=== PATIENT | female | born 1995 | race Caucasian/White ===

== ENCOUNTER 2020-01-17 09:56 | Inpatient (IN) | payer MEDICAID, OTHER ==
[~2020-01-17] VITALS: Ht 162.6 cm; Wt 45.5 kg
[~2020-01-17 09:56] MED LIST: FERR-89 PO; PREN-64 PO
[2020-01-17 12:02] LABS: BASOPHILS % (AUTO) 0.2 % (0.0-2.0); EOSINOPHILS % (AUTO) 0 % (1.0-6.0); HEMATOCRIT 43.1 % (36-46); HEMOGLOBIN 14.8 g/dL (12.0-16.0); LYMPHOCYTES # (AUTO) 1.3 K/uL (1.0-4.8); LYMPHOCYTES % (AUTO) 7.4 % (22.0-44.0); MEAN CORPUSCULAR HEMOGLOBIN 32.8 pg (26.0-34.0); MEAN CORPUSCULAR HGB CONC 34.3 G/dL (31.0-37.0); MEAN CORPUSCULAR VOLUME 96 fL (80-100); MONOCYTES # (AUTO) 0.6 K/uL (0.1-1.0); MONOCYTES % (AUTO) 3.4 % (2.0-9.0); NEUTROPHILS # (AUTO) 15.6 K/uL (1.8-7.7); PLATELET COUNT (AUTO) 188 K/uL (150-450)
[2020-01-17 12:15] LABS: ANION GAP 19 mmol/L (8-16); CALCIUM, TOTAL 9.3 mg/dL (8.8-10.5); CARBON DIOXIDE 21 mmol/L (22-29); CHLORIDE 100 mmol/L (98-107); CREATININE 0.91 mg/dL (0.60-1.30); GLOMERULAR FILTR. RATE CALC > 60 mL/min (>60); GLUCOSE,RANDOM 92 mg/dL (70-110); POTASSIUM 3.2 mmol/L (3.5-5.1); SODIUM SERUM 140 mmol/L (136-145); UREA NITROGEN, BLOOD 10 mg/dL (7-18)
[2020-01-17 12:29] LABS: ALANINE AMINOTRANSFERASE 26 U/L (12-78); ALBUMIN 5.2 g/dL (3.4-5.0); ALKALINE PHOSPHATASE 51 U/L (46-116); ASPARTATE AMINOTRANSFERASE 42 U/L (15-37); BILIRUBIN,TOTAL 1.1 mg/dL (0.1-1.0); HCG,QUANTITATIVE < 1 mIU/mL (0-6); TOTAL PROTEIN, SERUM 8.5 g/dL (6.4-8.2)
[2020-01-17] MEDS: POTASSIUM CHLORIDE 20 MEQ ER TABLET PO ONE ×2 (12:43→12:50)
[2020-01-17] MEDS ORDERED: LORazepam 1 MG TABLET PO ONE (14:30)
[2020-01-17 15:53] LABS: AMPHET/METH SCREEN,URINE NEGATIVE (NEGATIVE); BARBITURATE SCREEN, URINE NEGATIVE (NEGATIVE); BENZODIAZEPINES SCREEN,URINE NEGATIVE (NEGATIVE); CANNABINOID SCREEN,URINE POSITIVE (NEGATIVE); COCAINE SCREEN,URINE NEGATIVE (NEGATIVE); METHADONE SCREEN, URINE NEGATIVE (NEGATIVE); OPIATE SCREEN,URINE NEGATIVE (NEGATIVE)
[2020-01-17 15:56] LABS: PHENCYCLIDINE SCREEN,URINE NEGATIVE (NEGATIVE)
[2020-01-17] MEDS ORDERED: DiphenhydrAMINE HCL 50 MG/ML VIAL IM ONE (16:15)
[2020-01-17] MEDS ORDERED: LORazepam 2 MG/ML VIAL IM ONE (16:15)
[2020-01-17] MEDS ORDERED: HALOPERIDOL LACTATE 5 MG/ML VIAL IM ONE (16:15)
[2020-01-17 16:33] LABS: APPEARANCE,URINE CLEAR (CLEAR); BILIRUBIN,URINE NEGATIVE (NEGATIVE); GLUCOSE, URINE (UA) NEGATIVE (NEGATIVE); KETONES,URINE >=80 mg/dL (NEGATIVE); LEUKOCYTE ESTERASE ,URINE NEGATIVE (NEGATIVE); NITRATE,URINE NEGATIVE (NEGATIVE); OCCULT BLOOD,URINE MODERATE (NEGATIVE); PH,URINE 5.5 (5.0-8.0); PROTEIN,URINE NEGATIVE (NEGATIVE); UROBILINOGEN,URINE 0.2 mg/dL (<=1.0)
[2020-01-17 16:44] LABS: BACTERIA,URINE None Seen /HPF (None Seen); RBC,URINE 0-2 /HPF (0-2); WBC,URINE 0-2 /HPF (0-5); YEAST,URINE Rare /HPF (None Seen)
[2020-01-17 16:45] LABS: SQUAMOUS EPITHELIAL CELL,UR Few /LPF (None Seen)
[2020-01-17] MEDS ORDERED: LORazepam 2 MG TABLET PO PRN (18:15)
[2020-01-17] MEDS ORDERED: HALOPERIDOL 5 MG TABLET PO PRN (18:15)
[2020-01-17] MEDS ORDERED: ZOLPIDEM TARTRATE 10 MG TABLET PO PRN (18:15)
[2020-01-18 01:13] VITALS: BP 113/54
[2020-01-18 08:20] VITALS: BP 106/67
[2020-01-18] MEDS ORDERED: GuaiFENesin/D-METHORPHAN [SUGAR-FREE] 200-20MG/10 ML SYRUP UDCUP PO PRN (09:15)
[2020-01-18] MEDS ORDERED: MAG HYDROX/AL HYDROX/SIMETH ES 30 ML SUSPENSION UDCUP PO PRN (09:15)
[2020-01-18] MEDS ORDERED: IBUPROFEN 400 MG TABLET PO PRN (09:15)
[2020-01-18] MEDS ORDERED: ONDANSETRON HCL 4 MG TABLET PO PRN (09:15)
[2020-01-18] MEDS ORDERED: PETROLATUM,WHITE 28 GM JELLY TP PRN (09:15)
[2020-01-18] MEDS ORDERED: ALBUTEROL SULFATE HFA 90 MCG/PUFF 8 GM INHALER IH PRN (09:15)
[2020-01-18] MEDS ORDERED: CloNIDine HCL 0.1 MG TABLET PO PRN (09:15)
[2020-01-18] MEDS ORDERED: MAGNESIUM HYDROXIDE SUSPENSION 30 ML UDCUP PO PRN (09:15)
[2020-01-18] MEDS ORDERED: NICOTINE 14 MG/24 HOUR PATCH TD PRN (09:15)
[2020-01-18] MEDS ORDERED: LOPERAMIDE HCL 2 MG CAPSULE PO PRN (09:15)
[2020-01-18] MEDS ORDERED: ACETAMINOPHEN 325 MG TABLET PO PRN (09:15)
[2020-01-18] MEDS ORDERED: DOCUSATE SODIUM 100 MG CAPSULE PO PRN (09:15)
[2020-01-18 16:10] VITALS: BP 114/56
[2020-01-18] MEDS: RisperiDONE 1 MG TABLET PO SCH (16:11)
[2020-01-19 01:44] VITALS: BP 114/73
[2020-01-19] MEDS: RisperiDONE 1 MG TABLET PO SCH ×2 (08:22→16:32)
[2020-01-19 09:29] LABS: MAGNESIUM 1.9 mg/dL (1.80-2.40); PHOSPHORUS 3.6 mg/dL (2.5-4.9)
[2020-01-19 10:24] VITALS: BP 117/83
[2020-01-19 17:01] VITALS: BP 108/68
[2020-01-20 06:05] VITALS: BP 117/87
[2020-01-20 07:10] LABS: BASOPHILS % (AUTO) 0.4 % (0.0-2.0); EOSINOPHILS % (AUTO) 0.5 % (1.0-6.0); HEMATOCRIT 41.8 % (36-46); HEMOGLOBIN 14.3 g/dL (12.0-16.0); LYMPHOCYTES # (AUTO) 3.2 K/uL (1.0-4.8); LYMPHOCYTES % (AUTO) 42.7 % (22.0-44.0); MEAN CORPUSCULAR HEMOGLOBIN 32.4 pg (26.0-34.0); MEAN CORPUSCULAR HGB CONC 34.3 G/dL (31.0-37.0); MEAN CORPUSCULAR VOLUME 95 fL (80-100); MONOCYTES # (AUTO) 0.5 K/uL (0.1-1.0); MONOCYTES % (AUTO) 7.1 % (2.0-9.0); NEUTROPHILS # (AUTO) 3.7 K/uL (1.8-7.7); NEUTROPHILS % (AUTO) 49.3 % (40.0-70.0); PLATELET COUNT (AUTO) 155 K/uL (150-450); RED BLOOD CELL COUNT(AUTO) 4.43 MIL/uL (4.00-5.20); RED CELL DISTRIBUTION WIDTH 13.1 % (11.5-14.5)
[2020-01-20 08:10] LABS: PLATELET MORPHOLOGY COMMENT LARGE PLTS PRESENT
[2020-01-20] MEDS: RisperiDONE 1 MG TABLET PO SCH (08:24)
[2020-01-20 09:46] VITALS: BP 110/84
[2020-01-20] MEDS ORDERED: RISP1TAB89 PO (12:02)
== END 2020-01-20 13:20 | disposition home or self-care (01) | DRG 750 ==
LOC: EMS 09:58 → B2S 19:30
PROVIDERS: ADMIT Psychiatry & Neurology Psychiatry; ATTEND Psychiatry & Neurology Psychiatry
DX: F20.0 Paranoid schizophrenia (principal); R74.0 Nonspecific elevation of levels of transaminase and lactic acid dehydrogenase [LDH]; D72.829 Elevated white blood cell count, unspecified; F12.10 Cannabis abuse, uncomplicated; F31.9 Bipolar disorder, unspecified; F41.9 Anxiety disorder, unspecified; R63.0 Anorexia; E87.6 Hypokalemia; F10.10 Alcohol abuse, uncomplicated; Z79.899 Other long term (current) drug therapy
CPT/HCPCS: 51701; 83735; 84100; G0480; J1200; J1630; J2060

== ENCOUNTER 2021-02-07 14:28 | Emergency (ER) | payer MEDICAID, OTHER ==
[~2021-02-07] VITALS: Ht 162.6 cm; Wt 50.0 kg
[~2021-02-07 14:28] MED LIST changes: -FERR-89 PO; -PREN-64 PO; +RISP1TAB89 PO
[2021-02-07 16:41] LABS: BASOPHILS % (AUTO) 0.3 % (0.0-2.0); EOSINOPHILS % (AUTO) 0.1 % (1.0-6.0); HEMATOCRIT 41.2 % (36-46); HEMOGLOBIN 13.9 g/dL (12.0-16.0); LYMPHOCYTES # (AUTO) 1.8 K/uL (1.0-4.8); LYMPHOCYTES % (AUTO) 24.9 % (22.0-44.0); MEAN CORPUSCULAR HEMOGLOBIN 30.8 pg (26.0-34.0); MEAN CORPUSCULAR HGB CONC 33.8 G/dL (31.0-37.0); MEAN CORPUSCULAR VOLUME 91 fL (80-100); MONOCYTES # (AUTO) 0.5 K/uL (0.1-1.0); MONOCYTES % (AUTO) 7.4 % (2.0-9.0); NEUTROPHILS % (AUTO) 67.3 % (40.0-70.0); PLATELET COUNT (AUTO) 187 K/uL (150-450); RED BLOOD CELL COUNT(AUTO) 4.52 MIL/uL (4.00-5.20); RED CELL DISTRIBUTION WIDTH 12.6 % (11.5-14.5)
[2021-02-07 16:50] LABS: CALCIUM, TOTAL 9.2 mg/dL (8.8-10.5); CARBON DIOXIDE 26 mmol/L (22-29); CREATININE 0.66 mg/dL (0.60-1.30); GLOMERULAR FILTR. RATE CALC > 60 mL/min (>60); GLUCOSE,RANDOM 95 mg/dL (70-110); UREA NITROGEN, BLOOD 7 mg/dL (7-18)
[2021-02-07 17:01] LABS: ALANINE AMINOTRANSFERASE 15 U/L (12-78); ALBUMIN 4.1 g/dL (3.4-5.0); ALKALINE PHOSPHATASE 50 U/L (46-116); ASPARTATE AMINOTRANSFERASE 14 U/L (15-37); BILIRUBIN,TOTAL 0.4 mg/dL (0.1-1.0); HCG,QUANTITATIVE < 1 mIU/mL (0-6); POTASSIUM 3.6 mmol/L (3.5-5.1); SODIUM SERUM 139 mmol/L (136-145); TOTAL PROTEIN, SERUM 7.7 g/dL (6.4-8.2)
[2021-02-07 17:02] LABS: ANION GAP 10 mmol/L (8-16); CHLORIDE 103 mmol/L (98-107)
[2021-02-07 17:26] LABS: APPEARANCE,URINE CLEAR (CLEAR); BILIRUBIN,URINE NEGATIVE (NEGATIVE); GLUCOSE, URINE (UA) NEGATIVE (NEGATIVE); KETONES,URINE >=80 mg/dL (NEGATIVE); LEUKOCYTE ESTERASE ,URINE NEGATIVE (NEGATIVE); NITRATE,URINE NEGATIVE (NEGATIVE); OCCULT BLOOD,URINE LARGE (NEGATIVE); PROTEIN,URINE NEGATIVE (NEGATIVE); UROBILINOGEN,URINE 0.2 mg/dL (<=1.0)
[2021-02-07 17:30] LABS: WBC,URINE 0-2 /HPF (0-5)
[2021-02-07 17:31] LABS: BACTERIA,URINE None Seen /HPF (None Seen); SQUAMOUS EPITHELIAL CELL,UR Few /LPF (None Seen)
[2021-02-07 17:32] LABS: AMPHET/METH SCREEN,URINE NEGATIVE (NEGATIVE); BARBITURATE SCREEN, URINE NEGATIVE (NEGATIVE); BENZODIAZEPINES SCREEN,URINE NEGATIVE (NEGATIVE); CANNABINOID SCREEN,URINE NEGATIVE (NEGATIVE); COCAINE SCREEN,URINE NEGATIVE (NEGATIVE); METHADONE SCREEN, URINE NEGATIVE (NEGATIVE); OPIATE SCREEN,URINE NEGATIVE (NEGATIVE)
[2021-02-07 17:33] LABS: PHENCYCLIDINE SCREEN,URINE NEGATIVE (NEGATIVE)
[2021-02-07] MEDS ORDERED: RisperiDONE 1 MG TABLET PO ONE (19:00)
[2021-02-07 21:07] VITALS: BP 124/76
== END 2021-02-07 21:10 | disposition home or self-care (01) ==
LOC: EMS 14:31
DX: R44.0 Auditory hallucinations (principal)
CPT/HCPCS: 36415; 80053; 80307; 81001; 84702; 85025; 99284; G0480

== ENCOUNTER 2021-02-09 08:01 | Inpatient (IN) | payer MEDICAID, OTHER ==
[~2021-02-09] VITALS: Ht 154.9 cm; Wt 46.6 kg
[2021-02-09] MEDS ORDERED: RisperiDONE 1 MG TABLET PO ONE (08:30)
[2021-02-09 08:42] LABS: BASOPHILS % (AUTO) 0.4 % (0.0-2.0); EOSINOPHILS % (AUTO) 0.1 % (1.0-6.0); HEMATOCRIT 42.1 % (36-46); HEMOGLOBIN 14.1 g/dL (12.0-16.0); LYMPHOCYTES # (AUTO) 1.5 K/uL (1.0-4.8); MEAN CORPUSCULAR HEMOGLOBIN 30.5 pg (26.0-34.0); MEAN CORPUSCULAR HGB CONC 33.5 G/dL (31.0-37.0); MEAN CORPUSCULAR VOLUME 91 fL (80-100); MONOCYTES # (AUTO) 0.6 K/uL (0.1-1.0); MONOCYTES % (AUTO) 7.4 % (2.0-9.0); NEUTROPHILS # (AUTO) 5.5 K/uL (1.8-7.7); NEUTROPHILS % (AUTO) 72.1 % (40.0-70.0); PLATELET COUNT (AUTO) 174 K/uL (150-450); RED BLOOD CELL COUNT(AUTO) 4.61 MIL/uL (4.00-5.20); RED CELL DISTRIBUTION WIDTH 12.6 % (11.5-14.5)
[2021-02-09 08:52] LABS: ANION GAP 10 mmol/L (8-16); CARBON DIOXIDE 27 mmol/L (22-29); CHLORIDE 105 mmol/L (98-107); CREATININE 0.72 mg/dL (0.60-1.30); GLOMERULAR FILTR. RATE CALC > 60 mL/min (>60); GLUCOSE,RANDOM 108 mg/dL (70-110); POTASSIUM 3.6 mmol/L (3.5-5.1); SODIUM SERUM 142 mmol/L (136-145); UREA NITROGEN, BLOOD 7 mg/dL (7-18)
[2021-02-09] MEDS ORDERED: TUBERCULIN, PURIFIED PROTEIN DERIVATIVE 5 TU/0.1 ML SYRINGE ID ONE (09:15)
[2021-02-09] MEDS ORDERED: ZOLPIDEM TARTRATE 10 MG TABLET PO PRN (09:15)
[2021-02-09] MEDS ORDERED: LOPERAMIDE HCL 2 MG CAPSULE PO PRN (09:15)
[2021-02-09] MEDS ORDERED: HydrOXYzine PAMOATE 50 MG CAPSULE PO PRN (09:15)
[2021-02-09] MEDS ORDERED: PROMETHAZINE HCL 25 MG TABLET PO PRN (09:15)
[2021-02-09] MEDS ORDERED: MAGNESIUM HYDROXIDE SUSPENSION 30 ML UDCUP PO PRN (09:15)
[2021-02-09] MEDS ORDERED: LORazepam 2 MG TABLET PO PRN (09:15)
[2021-02-09] MEDS ORDERED: GuaiFENesin/D-METHORPHAN [SUGAR-FREE] 200-20MG/10 ML SYRUP UDCUP PO PRN (09:15)
[2021-02-09] MEDS ORDERED: OLANZapine 5 MG RAPDIS TABLET PO PRN (09:15)
[2021-02-09] MEDS ORDERED: MAG HYDROX/AL HYDROX/SIMETH ES 30 ML SUSPENSION UDCUP PO PRN (09:15)
[2021-02-09] MEDS ORDERED: ACETAMINOPHEN 325 MG TABLET PO PRN (09:15)
[2021-02-09 09:18] LABS: ALANINE AMINOTRANSFERASE 18 U/L (12-78); ALBUMIN 4.2 g/dL (3.4-5.0); ALKALINE PHOSPHATASE 49 U/L (46-116); ASPARTATE AMINOTRANSFERASE 14 U/L (15-37); BILIRUBIN,TOTAL 0.4 mg/dL (0.1-1.0); CHOL/HDL RATIO 2.5 (3.9-5.7); CHOLESTEROL 199 mg/dL (131-200); CREATINE KINASE, TOTAL ONLY 186 U/L (26-192); FREE T4 (FREE THYROXINE) 1.75 ng/dL (0.76-1.46); HCG,QUANTITATIVE < 1 mIU/mL (0-6); HDL CHOLESTEROL 79 mg/dL (40-60); LDL CHOL (CALC.) 109 mg/dL (0-130); TOTAL PROTEIN, SERUM 7.8 g/dL (6.4-8.2); TRIGLYCERIDES 55 mg/dL (15-150)
[2021-02-09 09:22] LABS: COVID AG,FIA SOURCE NASOPHARYNGEAL
[2021-02-09] MEDS ORDERED: HALOPERIDOL LACTATE 5 MG/ML VIAL IM ONE (15:00)
[2021-02-09] MEDS ORDERED: LORazepam 2 MG/ML VIAL IM ONE (15:00)
[2021-02-09] MEDS ORDERED: DiphenhydrAMINE HCL 50 MG/ML VIAL IM ONE (15:00)
[2021-02-09 17:49] VITALS: BP 105/74
[2021-02-09] MEDS: THIAMINE 100 MG TABLET PO SCH (17:54)
[2021-02-09] MEDS ORDERED: OLANZapine 5 MG RAPDIS TABLET PO SCH (21:00)
[2021-02-09] MEDS: MELATONIN 5 MG TABLET PO SCH (21:00)
[2021-02-10 08:35] LABS: HEMOGLOBIN A1C 4.8 % (3.8-5.6)
[2021-02-10 08:48] VITALS: BP 128/84
[2021-02-10 08:49] LABS: CHOL/HDL RATIO 2.6 (3.9-5.7); FREE T4 (FREE THYROXINE) 1.84 ng/dL (0.76-1.46); THYROID STIMULATING HORMONE 0.68 uIU/mL (0.36-3.74)
[2021-02-10] MEDS: OMEGA-3/DHA/EPA/FISH OIL 1,000 MG CAPSULE PO SCH (11:58)
[2021-02-10] MEDS: MELATONIN 5 MG TABLET PO SCH (11:58)
[2021-02-10] MEDS: FOLIC ACID 1 MG TABLET PO SCH (11:58)
[2021-02-10] MEDS: NALTREXONE HCL 50 MG TABLET PO SCH (11:58)
[2021-02-10] MEDS: MULTIVITAMINS WITH MINERALS, THERAPEUTIC TABLET PO SCH (12:00)
[2021-02-10] MEDS: THIAMINE 100 MG TABLET PO SCH ×2 (12:00→16:07)
[2021-02-10 16:38] VITALS: BP 128/85
[2021-02-10] MEDS ORDERED: LURASIDONE HCL 20 MG TABLET PO PRN ×2 (18:45)
[2021-02-10] MEDS ORDERED: LURASIDONE HCL 40 MG TABLET PO ONE ×2 (18:45)
[2021-02-11 08:22] VITALS: BP 132/83
[2021-02-11] MEDS: NALTREXONE HCL 50 MG TABLET PO SCH (09:39)
[2021-02-11] MEDS: OMEGA-3/DHA/EPA/FISH OIL 1,000 MG CAPSULE PO SCH (09:40)
[2021-02-11] MEDS: FOLIC ACID 1 MG TABLET PO SCH (09:40)
[2021-02-11] MEDS: MULTIVITAMINS WITH MINERALS, THERAPEUTIC TABLET PO SCH (09:40)
[2021-02-11] MEDS: THIAMINE 100 MG TABLET PO SCH ×2 (09:40→16:19)
[2021-02-11 13:48] LABS: APPEARANCE,URINE CLEAR (CLEAR); BILIRUBIN,URINE NEGATIVE (NEGATIVE); GLUCOSE, URINE (UA) NEGATIVE (NEGATIVE); KETONES,URINE NEGATIVE (NEGATIVE); LEUKOCYTE ESTERASE ,URINE NEGATIVE (NEGATIVE); NITRATE,URINE NEGATIVE (NEGATIVE); OCCULT BLOOD,URINE LARGE (NEGATIVE); PROTEIN,URINE NEGATIVE (NEGATIVE); UROBILINOGEN,URINE 0.2 mg/dL (<=1.0)
[2021-02-11 13:54] LABS: AMPHET/METH SCREEN,URINE NEGATIVE (NEGATIVE); BARBITURATE SCREEN, URINE NEGATIVE (NEGATIVE); BENZODIAZEPINES SCREEN,URINE NEGATIVE (NEGATIVE); CANNABINOID SCREEN,URINE NEGATIVE (NEGATIVE); COCAINE SCREEN,URINE NEGATIVE (NEGATIVE); METHADONE SCREEN, URINE NEGATIVE (NEGATIVE); OPIATE SCREEN,URINE NEGATIVE (NEGATIVE)
[2021-02-11 14:10] LABS: BACTERIA,URINE Few /HPF (None Seen); SQUAMOUS EPITHELIAL CELL,UR Few /LPF (None Seen); WBC,URINE None Seen /HPF (0-5)
[2021-02-11 14:12] LABS: PHENCYCLIDINE SCREEN,URINE NEGATIVE (NEGATIVE)
[2021-02-11 16:05] VITALS: BP 132/84
[2021-02-11] MEDS ORDERED: LURASIDONE HCL 40 MG TABLET PO SCH ×2 (17:30)
[2021-02-11] MEDS ORDERED: LURA60TA PO (18:52)
[2021-02-11] MEDS ORDERED: NALT50TA PO (18:52)
[2021-02-11] MEDS ORDERED: MELA5TAB3 PO (18:52)
[2021-02-11] MEDS ORDERED: OMEG-135 PO (18:52)
[2021-02-11] MEDS: MELATONIN 5 MG TABLET PO SCH (20:23)
[2021-02-12] MEDS: OMEGA-3/DHA/EPA/FISH OIL 1,000 MG CAPSULE PO SCH (08:42)
[2021-02-12] MEDS: NALTREXONE HCL 50 MG TABLET PO SCH (08:42)
[2021-02-12] MEDS: THIAMINE 100 MG TABLET PO SCH ×2 (08:42→16:06)
[2021-02-12] MEDS: FOLIC ACID 1 MG TABLET PO SCH (08:42)
[2021-02-12] MEDS: MULTIVITAMINS WITH MINERALS, THERAPEUTIC TABLET PO SCH (08:42)
[2021-02-12 09:38] VITALS: BP 128/88
[2021-02-12 09:41] VITALS: BP 112/81
[2021-02-12 16:00] VITALS: BP 108/75
[2021-02-12] MEDS ORDERED: LURASIDONE HCL 60 MG TABLET PO SCH (17:30)
== END 2021-02-12 16:15 | disposition home or self-care (01) | DRG 750 ==
LOC: EMS 08:19 → 3EC 16:40
PROVIDERS: ADMIT Psychiatry & Neurology Psychiatry; ATTEND Psychiatry & Neurology Psychiatry
DX: F20.0 Paranoid schizophrenia (principal); Z78.1 Physical restraint status; Z55.9 Problems related to education and literacy, unspecified; Z59.9 Problem related to housing and economic circumstances, unspecified; Z65.3 Problems related to other legal circumstances; Z81.8 Family history of other mental and behavioral disorders; Z20.822 Contact with and (suspected) exposure to COVID-19
CPT/HCPCS: 80053; 80061; 81001; 82550; 83036; 84439; 84443; 84702; 85025; 86592; 99285; A9575; G0480; J1200; J1630; J2060

== ENCOUNTER 2022-12-07 14:19 | Emergency (ER) | payer MEDICAID, OTHER ==
[~2022-12-07] VITALS: Ht 162.6 cm; Wt 58.2 kg
[~2022-12-07 14:19] MED LIST changes: +LURA60TA PO; +MELA5TAB40 PO; +NALT50TA PO; +OMEG-135 PO; -RISP1TAB89 PO
[2022-12-07 15:45] LABS: BASOPHILS % (AUTO) 0.6 % (0.0-2.0); EOSINOPHILS % (AUTO) 1.7 % (1.0-6.0); HEMATOCRIT 42.8 % (36-46); HEMOGLOBIN 14.7 g/dL (12.0-16.0); LYMPHOCYTES # (AUTO) 2.8 K/uL (1.0-4.8); LYMPHOCYTES % (AUTO) 30.4 % (22.0-44.0); MEAN CORPUSCULAR HEMOGLOBIN 31.7 pg (26.0-34.0); MEAN CORPUSCULAR HGB CONC 34.3 G/dL (31.0-37.0); MEAN CORPUSCULAR VOLUME 93 fL (80-100); MONOCYTES # (AUTO) 0.6 K/uL (0.1-1.0); MONOCYTES % (AUTO) 6.3 % (2.0-9.0); NEUTROPHILS # (AUTO) 5.7 K/uL (1.8-7.7); PLATELET COUNT (AUTO) 227 K/uL (150-450); RED BLOOD CELL COUNT(AUTO) 4.63 MIL/uL (4.00-5.20); RED CELL DISTRIBUTION WIDTH 12.4 % (11.5-14.5)
[2022-12-07 15:55] LABS: ANION GAP 7 mmol/L (8-16); CARBON DIOXIDE 27 mmol/L (22-29); CHLORIDE 103 mmol/L (98-107); GLOMERULAR FILTR. RATE CALC > 60 mL/min (>60); GLUCOSE,RANDOM 94 mg/dL (70-110); POTASSIUM 4.6 mmol/L (3.5-5.1); SODIUM SERUM 137 mmol/L (136-145); UREA NITROGEN, BLOOD 16 mg/dL (7-18)
[2022-12-07 16:08] LABS: ALANINE AMINOTRANSFERASE 22 U/L (12-78); ALBUMIN 4.3 g/dL (3.4-5.0); ALKALINE PHOSPHATASE 78 U/L (46-116); ASPARTATE AMINOTRANSFERASE 17 U/L (15-37); BILIRUBIN,TOTAL 0.2 mg/dL (0.1-1.0); HCG,QUANTITATIVE < 1 mIU/mL (0-6); PHOSPHORUS 2.8 mg/dL (2.5-4.9); TOTAL PROTEIN, SERUM 8.1 g/dL (6.4-8.2)
[2022-12-07 19:43] VITALS: BP 116/78
[2022-12-07 19:47] LABS: AMPHET/METH SCREEN,URINE NEGATIVE (NEGATIVE); BARBITURATE SCREEN, URINE NEGATIVE (NEGATIVE); BENZODIAZEPINES SCREEN,URINE NEGATIVE (NEGATIVE); CANNABINOID SCREEN,URINE NEGATIVE (NEGATIVE); COCAINE SCREEN,URINE NEGATIVE (NEGATIVE); METHADONE SCREEN, URINE NEGATIVE (NEGATIVE); OPIATE SCREEN,URINE NEGATIVE (NEGATIVE); PHENCYCLIDINE SCREEN,URINE NEGATIVE (NEGATIVE)
== END 2022-12-07 23:00 | disposition left against medical advice (07) ==
LOC: EMS 14:28
DX: R20.0 Anesthesia of skin (principal); Z53.21 Procedure and treatment not carried out due to patient leaving prior to being seen by health care provider
CPT/HCPCS: 99281; 80053; 83735; 84100; 84702; 85025; 36415; 80307 ×2; G0480

== ENCOUNTER 2024-01-28 22:06 | Emergency (ER) | payer OTHER, MEDICAID ==
[~2024-01-28] VITALS: Ht 162.6 cm; Wt 65.5 kg
[~2024-01-28 22:06] MED LIST changes: -MELA5TAB40 PO; -NALT50TA PO
[2024-01-28 22:17] VITALS: TEMP 97.7
[2024-01-28 22:46] LABS: COVID AG,FIA SOURCE NASAL SWAB
[2024-01-28 22:53] LABS: BASOPHILS % (AUTO) 0.4 % (0.0-2.0); EOSINOPHILS % (AUTO) 2.1 % (1.0-6.0); HEMATOCRIT 40.1 % (36-46); HEMOGLOBIN 13.2 g/dL (12.0-16.0); LYMPHOCYTES # (AUTO) 3.4 K/uL (1.0-4.8); LYMPHOCYTES % (AUTO) 39.1 % (22.0-44.0); MEAN CORPUSCULAR HGB CONC 32.8 G/dL (31.0-37.0); MEAN CORPUSCULAR VOLUME 91 fL (80-100); MONOCYTES # (AUTO) 0.6 K/uL (0.1-1.0); MONOCYTES % (AUTO) 6.5 % (2.0-9.0); NEUTROPHILS # (AUTO) 4.5 K/uL (1.8-7.7); NEUTROPHILS % (AUTO) 51.9 % (40.0-70.0); PLATELET COUNT (AUTO) 262 K/uL (150-450); RED BLOOD CELL COUNT(AUTO) 4.39 MIL/uL (4.00-5.20); RED CELL DISTRIBUTION WIDTH 13.7 % (11.5-14.5); WHITE BLOOD COUNT (AUTO) 8.7 K/uL (4.5-11.0)
[2024-01-28 22:56] LABS: ALCOHOL, URINE DRUG SCREEN NEGATIVE (NEGATIVE); AMPHET/METH SCREEN,URINE NEGATIVE (NEGATIVE); BARBITURATE SCREEN, URINE NEGATIVE (NEGATIVE); BENZODIAZEPINES SCREEN,URINE NEGATIVE (NEGATIVE); CANNABINOID SCREEN,URINE NEGATIVE (NEGATIVE); COCAINE SCREEN,URINE NEGATIVE (NEGATIVE); METHADONE SCREEN, URINE NEGATIVE (NEGATIVE); OPIATE SCREEN,URINE NEGATIVE (NEGATIVE); PHENCYCLIDINE SCREEN,URINE NEGATIVE (NEGATIVE)
[2024-01-28 23:00] LABS: ANION GAP 7 mmol/L (8-16); CALCIUM, TOTAL 9.6 mg/dL (8.8-10.5); CARBON DIOXIDE 29 mmol/L (22-29); CHLORIDE 102 mmol/L (98-107); GLOMERULAR FILTR. RATE CALC > 60 mL/min (>60); GLUCOSE,RANDOM 90 mg/dL (70-110); SODIUM SERUM 138 mmol/L (136-145); UREA NITROGEN, BLOOD 12 mg/dL (7-18)
[2024-01-28 23:05] LABS: SARS-COV2 (COVID) ANTIGEN,FIA Negative (Negative)
[2024-01-28 23:09] LABS: ALCOHOL, BLOOD (SERUM) < 3 mg/dL (0-10)
[2024-01-28] MEDS: LURASIDONE HCL 20 MG TABLET PO ONE (23:13)
[2024-01-28] MEDS: BENZTROPINE MESYLATE 2 MG TABLET PO ONE (23:13)
[2024-01-28] MEDS ORDERED: BENZ-247 PO (23:22)
[2024-01-28] MEDS ORDERED: LURA20TA PO (23:22)
[2024-01-28 23:24] VITALS: BP 138/76; PULSE 84; RESP 16
[2024-01-29] MEDS ORDERED: BENZ-247 PO (17:07)
== END 2024-01-28 23:48 | disposition home or self-care (01) ==
LOC: EMS 22:06
DX: F20.0 Paranoid schizophrenia (principal); Z20.822 Contact with and (suspected) exposure to COVID-19
CPT/HCPCS: 99283; 87426; 80048; 84703; 85025; 36415; 80307; G0480; Q9967

== ENCOUNTER 2024-01-29 17:00 | Inpatient (IN) | payer MEDICAID, OTHER ==
[~2024-01-29] VITALS: Ht 162.6 cm; Wt 66.0 kg
[~2024-01-29 17:00] MED LIST changes: +BENZ-247 PO; +LURA20TA PO
[2024-01-29] MEDS ORDERED: BENZ-247 PO (17:07)
[2024-01-29] MEDS: LORazepam 2 MG TABLET PO ONE (17:28)
[2024-01-29] MEDS: OLANZapine 5 MG TABLET PO ONE (17:28)
[2024-01-29] MEDS ORDERED: ZOLPIDEM TARTRATE 10 MG TABLET PO PRN (17:30)
[2024-01-29 17:57] LABS: COVID AG,FIA SOURCE NASAL SWAB
[2024-01-29 18:15] LABS: SARS-COV2 (COVID) ANTIGEN,FIA Negative (Negative)
[2024-01-29 18:45] LABS: APPEARANCE,URINE CLEAR (CLEAR); BILIRUBIN,URINE NEGATIVE (NEGATIVE); COLOR,URINE LIGHT YELLOW (YELLOW); GLUCOSE, URINE (UA) NEGATIVE (NEGATIVE); KETONES,URINE 40-60 mg/dL (NEGATIVE); LEUKOCYTE ESTERASE ,URINE NEGATIVE (NEGATIVE); NITRATE,URINE NEGATIVE (NEGATIVE); OCCULT BLOOD,URINE LARGE (NEGATIVE); PROTEIN,URINE NEGATIVE (NEGATIVE); UROBILINOGEN,URINE <=1.0 mg/dL (<=1.0)
[2024-01-29 18:45] LABS: BASOPHILS % (AUTO) 0.4 % (0.0-2.0); EOSINOPHILS % (AUTO) 0.2 % (1.0-6.0); HEMOGLOBIN 13.8 g/dL (12.0-16.0); LYMPHOCYTES # (AUTO) 1.9 K/uL (1.0-4.8); LYMPHOCYTES % (AUTO) 17.8 % (22.0-44.0); MEAN CORPUSCULAR HEMOGLOBIN 30.9 pg (26.0-34.0); MEAN CORPUSCULAR HGB CONC 34.4 G/dL (31.0-37.0); MEAN CORPUSCULAR VOLUME 90 fL (80-100); MONOCYTES # (AUTO) 0.4 K/uL (0.1-1.0); MONOCYTES % (AUTO) 4.1 % (2.0-9.0); NEUTROPHILS # (AUTO) 8.3 K/uL (1.8-7.7); NEUTROPHILS % (AUTO) 77.5 % (40.0-70.0); PLATELET COUNT (AUTO) 271 K/uL (150-450); RED BLOOD CELL COUNT(AUTO) 4.46 MIL/uL (4.00-5.20); RED CELL DISTRIBUTION WIDTH 13.5 % (11.5-14.5); WHITE BLOOD COUNT (AUTO) 10.8 K/uL (4.5-11.0)
[2024-01-29 18:50] LABS: BACTERIA,URINE Rare /HPF (None Seen); SQUAMOUS EPITHELIAL CELL,UR Moderate /LPF (None Seen); WBC,URINE 0-2 /HPF (0-5)
[2024-01-29 18:51] LABS: ALCOHOL, URINE DRUG SCREEN NEGATIVE (NEGATIVE); AMPHET/METH SCREEN,URINE NEGATIVE (NEGATIVE); BARBITURATE SCREEN, URINE NEGATIVE (NEGATIVE); BENZODIAZEPINES SCREEN,URINE NEGATIVE (NEGATIVE); CANNABINOID SCREEN,URINE NEGATIVE (NEGATIVE); COCAINE SCREEN,URINE NEGATIVE (NEGATIVE); METHADONE SCREEN, URINE NEGATIVE (NEGATIVE); OPIATE SCREEN,URINE NEGATIVE (NEGATIVE); PHENCYCLIDINE SCREEN,URINE NEGATIVE (NEGATIVE)
[2024-01-29 18:53] LABS: ANION GAP 11 mmol/L (8-16); CALCIUM, TOTAL 9.5 mg/dL (8.8-10.5); CARBON DIOXIDE 26 mmol/L (22-29); CHLORIDE 102 mmol/L (98-107); CREATININE 0.54 mg/dL (0.60-1.30); GLOMERULAR FILTR. RATE CALC > 60 mL/min (>60); GLUCOSE,RANDOM 96 mg/dL (70-110); POTASSIUM 3.7 mmol/L (3.5-5.1); SODIUM SERUM 139 mmol/L (136-145); UREA NITROGEN, BLOOD 9 mg/dL (7-18)
[2024-01-29 18:58] LABS: ALANINE AMINOTRANSFERASE 34 U/L (12-78); ALBUMIN 4.3 g/dL (3.4-5.0); ALKALINE PHOSPHATASE 97 U/L (46-116); ASPARTATE AMINOTRANSFERASE 21 U/L (15-37); BILIRUBIN,TOTAL 0.5 mg/dL (0.1-1.0); TOTAL PROTEIN, SERUM 8.2 g/dL (6.4-8.2)
[2024-01-29 19:01] LABS: ALCOHOL, BLOOD (SERUM) < 3 mg/dL (0-10)
[2024-01-29 23:09] VITALS: BP 137/87; PULSE 88; RESP 20; TEMP 97.8; O2SAT 100
[2024-01-30] MEDS ORDERED: DOCUSATE SODIUM 100 MG CAPSULE PO PRN (06:30)
[2024-01-30] MEDS ORDERED: ACETAMINOPHEN 325 MG TABLET PO PRN (06:30)
[2024-01-30] MEDS ORDERED: IBUPROFEN 400 MG TABLET PO PRN (06:30)
[2024-01-30] MEDS ORDERED: LOPERAMIDE HCL 2 MG CAPSULE PO PRN (06:30)
[2024-01-30] MEDS ORDERED: PETROLATUM,WHITE 28 GM JELLY TP PRN (06:30)
[2024-01-30] MEDS ORDERED: MAG HYDROX/ALUMINUM HYD/SIMETH ES 30 ML SUSPENSION UDCUP PO PRN (06:30)
[2024-01-30] MEDS ORDERED: ONDANSETRON HCL 4 MG TABLET PO PRN (06:30)
[2024-01-30] MEDS ORDERED: NICOTINE 14 MG/24 HOUR PATCH TD PRN (06:30)
[2024-01-30] MEDS ORDERED: ALBUTEROL SULFATE HFA 90 MCG/PUFF 8 GM INHALER IH PRN (06:30)
[2024-01-30] MEDS ORDERED: MAGNESIUM HYDROXIDE SUSPENSION 30 ML UDCUP PO PRN (06:30)
[2024-01-30] MEDS ORDERED: CloNIDine HCL 0.1 MG TABLET PO PRN (06:30)
[2024-01-30] MEDS ORDERED: GuaiFENesin/D-METHORPHAN [SUGAR-FREE] 200-20MG/10 ML SYRUP UDCUP PO PRN (06:30)
[2024-01-30 14:57] VITALS: BP 127/88; PULSE 106; RESP 16; TEMP 99.1; O2SAT 98
[2024-01-30] MEDS: LURASIDONE HCL 40 MG TABLET PO SCH (17:53)
[2024-01-30] MEDS: BENZTROPINE MESYLATE 1 MG TABLET PO SCH (17:54)
[2024-01-30 20:41] VITALS: BP 128/89; PULSE 90; RESP 18; TEMP 97.9; O2SAT 99
[2024-01-31] MEDS: LORazepam 2 MG TABLET PO PRN (07:05)
[2024-01-31] MEDS: HALOPERIDOL 5 MG TABLET PO PRN (07:05)
[2024-01-31 09:18] VITALS: BP 120/84; PULSE 110; RESP 18; TEMP 98.6; O2SAT 98
[2024-01-31 21:48] VITALS: BP 129/84; PULSE 108; RESP 18; TEMP 97.5; O2SAT 98
[2024-02-01 07:35] LABS: HEMOGLOBIN A1C 4.8 % (3.8-5.6)
[2024-02-01 07:49] LABS: CHOL/HDL RATIO 2.9 (3.9-5.7); THYROID STIMULATING HORMONE 1.18 uIU/mL (0.36-3.74)
[2024-02-01 11:14] VITALS: BP 146/93; PULSE 101; RESP 16; TEMP 98.8; O2SAT 98
[2024-02-01] MEDS ORDERED: LURA40TA4 PO (13:00)
[2024-02-01] MEDS ORDERED: BENZ-247 PO (13:00)
== END 2024-02-01 17:52 | disposition home or self-care (01) | DRG 751 ==
LOC: EMS 17:00 → 3EI 22:37
PROVIDERS: ADMIT Psychiatry & Neurology Child & Adolescent Psychiatry; ATTEND Psychiatry & Neurology Child & Adolescent Psychiatry
DX: F23 Brief psychotic disorder (principal); F22 Delusional disorders; G47.00 Insomnia, unspecified; Z20.822 Contact with and (suspected) exposure to COVID-19; R00.0 Tachycardia, unspecified; R63.0 Anorexia
CPT/HCPCS: 80053; 80061; 80307; 81001; 83036; 84443; 85025; 99285; G0480